=== PATIENT | female | born 1990 ===

== ENCOUNTER 2024-10-13 06:23 | Day surgery (SDC) | payer BC, SELFPAY ==
--- NOTE | 2024-10-12 06:38 | W.CON.GYNONC ---
Chief Complaint
-
endometrial ca
History of Present Illness
33�yo��who�had�menarche�at�age�13,�had�normal�period�though�her�early�20s�but�then�had�heavy�bleeding�and�D&C�showed hyperplasia�in[place].�She�was�given�pills�for�treatment,�only�complied�for�4�5�months�but�never�went�back�for�follow�up.
[place].�had�not�seen�[facility]�for�a�while,�trying�to�get�.�She�works�at�School�with
technology.�Over�last�few�years�she�had�had�intermittent�bleeding�very�heavy�with�clots�with�no�definable�menses.�she�went�to�Dr Giuffreda�for�evaluation.�
MRI�pelvis:�uterus�11.7�cm�x�6.7�x�9�cm,�arcuate�uterus,�no�Fibroids,�Thick�endometrium,�hypo�enhancing,�2.5�cm.�Junctional�zone
is�preserved.�without�significant�effacement�or�restricted�0%�myometrial�invasion.�ROV�is�2.4,�MARIPOSA�2.4�cm.�No�adnexal�masses,�or endometriosis.� Office�Endometrial�biopsy�12/12/23�is�atypical�endometrial�hyperplasia,�EIN.
She�was�taken�to�OR�01/30�for�D&C,�which�showed�grade�1�endometrial�cancer�arising�in�background�of�atypical�hyperplasia' p53�wild�type�pattern MMR�IHC�intact,�no�loss�of�expression,�low�prob�for�MSI�H
PMH�,�pre�diabetes,�gout.�does�not�have�a�dedicated�PCP PSH:�D&C Meds:�Norethidrone All:�NKDA Denies�Tab/etoh,�drugs,�does�use�medical�marijuana FHX:�mother�with�breast�cancer,�father�skin�ca,�multiple�maternal�family�members�with�malignancy
never�had�mammo�or�colonoscopy ����������������������������
patient�has�had�a�PET�CT�scan�which�shows�abnormal�FDG�uptake�in�consistent�with�history�of�endometrial cancer,�there�is�bilateral�right�greater�than�left�inguinal�lymphadenopathy�suspicious�for�benjie�metastatic�disease.�Most�avid�node
measures�4.2�SUV,�there�is�a�focus�of�increased�FDG�uptake�in�the�rectum�without�symptoms�correlate�with�inflammation.,�There is�bilateral�axillary�lymphadenopathy�1.3�cm�right�axilla�with�SUV�max�of�2.7.
CT�chest�abdomen�and�pelvis�was�also�done�at�[facility],�there�was�evidence�of�thickening�of�the�chest,�as�well�as�left�lower�lobe
pleural�based�calcified�nodule�unlikely�to�represent�metastatic�disease�with�calcification.�Again�bilateral�inguinal�adenopathy�was also�noted. Genetic�testing�was�completed,�there�is�no�clinically�significant�patient
However�there�is�a�variant�of�uncertain�significance�present�in�BRIP1.�
Since May She is�undergoing�conservative�management�of�low�grade�endometrial�cancer�with�levonorgestrel�IUD.�
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
She�denies�any�new�medical�problems.�She�still�does�not�have�a�primary�care�physician.
Medical History
Allergies
Allergies reflect when allergies were last updated in [employer].
No Known Allergies Allergy (Verified 10/06/24 15:14)
Physical Exam
Physical Exam
Physical�Exam Pelvic�Examination: External�normal�labia,�urethra,�anus.� Vagina:�Normal�mucosa.� Cervix:�normal�appearance,�no�discharge.�IUD�string�is�present Uterus:�normal�size.� Adnexa:�No�pelvic�mass.� RVE:�no�masses�or�nodularity
General:�Well�developed,�well�nourished�patient.�In�no�acute�distress. Head: Neck:�No�thyromegaly.�No�cervical�lymphadenopathy. Lungs:�Clear�to�auscultation.�Good�air�movement�bilaterally.
Cardiac:�Regular�rate.�Regular�rhythm.�No�murmurs�appreciated. Abdomen:�Abdomen�is�soft.�Non�tender�to�palpation.�Non�distended. Skin:Non�jaundiced.�No�petechia.�No�purpura. facial�skin�with�scar�of�acne�b/l
Impression / Plan
-
This�is�a�33�year�old�G0�woman�with�early�stage�and�low�grade�endometrial�cancer�undergoing�conservative�management�with hormonal�therapy.�She�has�been�on�treatment�approximately�6�months.�
Endometrial�biopsy�in�November�had�shown�papillary�architecture�and�mucinous�differentiation�suggestive�of�residual�hyperplasia but�no�obvious�cancer.
�proceed�with�scheduling�a�D&C�at�the�end�of�this�month,�at�the�time�of�surgery�hysteroscopy�as�well�as�removal�of�IUD will�be�done After�that�the�patient�will�be�brought�to�the�office�to�discuss�long�term�management�plans.
I�had�of�surgery�labs�as�well�as�ultrasound�of�pelvis�and�CT�abdomen�and�pelvis�will�be�obtained.
[2024-10-13] VITALS (8 sets, daily range): BP systolic 118–133; BP diastolic 58–84; BMI 35.8
[2024-10-13 11:55] LABS: Glucose - Point of Care 93 mg/dl (70-99)
[2024-10-13] MEDS: NORMOSOL-R/PLASMALYTE-A 1000 IV (12:49)
[2024-10-13] MEDS: HEPARIN 5000 UNITS SC (12:50)
[2024-10-13] MEDS: CELEBREX 200 MG PO (12:50)
[2024-10-13] MEDS: NEURONTIN 300 MG PO (12:50)
[2024-10-13] MEDS: TYLENOL 1000 MG PO (12:50)
[2024-10-13 12:56] LABS: HCG, Urine Qualitative Screen Negative
--- NOTE | 2024-10-17 07:41 | OR.RPT ---
Operative Report
Operative Report
Date of procedure: October 13 2024
Preoperative diagnosis: Endometrial Cancer, s/p conservative treatment with Progesterone IUD
Postoperative diagnosis: same
Procedure:
#1 exam under anesthesia
#2 Removal of IUD
#3 diagnostic hysteroscopy,
#4 Dilation and Curettage
Surgeon: Alexx Bernabe MD
Assist: Lydia Irwin PA-C
Anesthesia: General , LMA intubation
Complication: None
Estimated blood loss: 50 cc
Specimens: [facility]
Procedure in detail: This patient was taken to the operating room, Upon arrival to the operating room she was placed in supine position, general anesthesia was administered she was intubated without any difficulty. She was placed in lithotomy
position using yellowfin stirrups and prepped on the abdomen perineum and vagina and she was draped. Timeout procedure was carried out, she received Ancef 3 g IV for prophylaxis. Patient has normal bilateral right and left vulva, Vagina was
normal, cervix is unremarkable, IUD string identified adn removed gently without difficulty.
Next Anterior lip was grasped with single-tooth tenaculum. Paracervical block with 5 cc 1% lidocaine was injected at 5:00 and 7:00. Hysteroscope was placed in the uterine cavity and very thick plush endometrium was visualized. Next the
cervical canal was further dilated and sharp curettage of the right uterine cavity was performed and additional polypoid tissue and blood was removed and submitted to pathology.
All instruments were removed I irrigated the vagina with sterile saline. There was no evidence of bleeding I reexamined the rectum and bladder and there was no injuries. Patient was awakened extubated and returned back to recovery room stable
awake and extubated condition. Counts of laps instruments and needle was correct x 2. I was present and scrubbed for entire procedure as dictated above
Disposition: To PACU stable awake and extubated
== END 2024-10-13 17:40 | disposition home or self-care (01) ==
LOC: SDS 06:23
PROVIDERS: ATTENDING PHYSICIAN Obstetrics & Gynecology Gynecologic Oncology
DX: C54.1 Malignant neoplasm of endometrium (principal); Z17.0 Estrogen receptor positive status [ER+]
CPT/HCPCS: 58558; 58301; 88305; 81025; 82962; 88342; 88360

== ENCOUNTER → 2025-02-01 15:01 | Outpatient (REF) | payer BC, SELFPAY | LOC: CLAB 15:01 | PROVIDERS: ATTENDING PHYSICIAN Obstetrics & Gynecology Gynecologic Oncology | DX: C54.1 Malignant neoplasm of endometrium (principal) | CPT/HCPCS: 88305 ==

== ENCOUNTER 2025-04-06 06:03 | Day surgery (SDC) | payer BC, SELFPAY ==
--- NOTE | 2025-04-05 12:16 | W.CON.GYNONC ---
Addendum entered and electronically signed by Alexx Bernabe MD 04/13/25 05:26:
N/A
Addendum entered and electronically signed by Alexx Bernabe MD 04/08/25 09:08:
Date of dictation 04/06/2025
Original Note:
Chief Complaint
-
endometrial ca
History of Present Illness
33 yo who had menarche at age 13, had normal period though her early 20s but then had heavy bleeding and D&C showed
hyperplasia in [place]. She was given pills for treatment, only complied for 4�5 months but never went back for follow up.
relocated to [facility], in 2012. had not seen delimer for a while, trying to get . She works at School with
technology. Over last few years she had had intermittent bleeding very heavy with clots with no definable menses. she went to Dr
Jesse for evaluation.
MRI pelvis: uterus 11.7 cm x 6.7 x 9 cm, arcuate uterus, no Fibroids, Thick endometrium, hypo enhancing, 2.5 cm. Junctional zone
is preserved. without significant effacement or restricted 0% myometrial invasion. ROV is 2.4, MARIPOSA 2.4 cm. No adnexal masses, or
endometriosis.
Office Endometrial biopsy 12/12/23 is atypical endometrial hyperplasia, EIN.
She was taken to OR 01/30 for D&C, which showed grade 1 endometrial cancer arising in background of atypical hyperplasia'
p53 wild type pattern
MMR IHC intact, no loss of expression, low prob for MSI�H
on�February��she�underwent�removal�of�IUD�and�dilation�and�curettage. Unfortunately�the�pathology�still�shows�grade�1�endometrioid�type�endometrial�adenocarcinoma. 11/23/2024
she�is�back�to�office�to�discuss�her�endometrial�ca.�Overall�she�is�tolerating�it�moderately�well�stating�she�is�taking�megace�80�mg BID,�feels�6�lbs�weight�gain,�has�seasonal�affective�disorder�
This�patient�is�taking�Megace�80�mg�twice�daily,�she�feels�significant�weight�gain,�does�not�like�how�she�feels�on�this.�This�strategy was�adopted�after�the�patient�had�6�months�of�exposure�to�levonorgestrel�IUD�which�was�not�effective
�this�patient�returns�back�to�the�office�today She�underwent�ultrasound�of�pelvis�Jaye�1�at�[facility]�outpatient�imaging
Endometriomas�1.8�cm�heterogeneous,�hypervascular�still.�Right�ovary�is�2.7�cm�left�ovary�is�2.5�cm,�uterus�is�overall�9�x�6.2�x�7.7 cm.
Patient�had�biopsy�of�the�endometrium�during�the�last�visit.�Endometrial�biopsy�still�shows�disordered�proliferative�endometrium�but it�was�negative�for�malignancy.
She�is�having�quite�a�difficult�time�tolerating�megestrol�acetate,�wants�to�come�off�of�it�as�soon�as�possible.
PMH , pre diabetes, gout. does not have a dedicated PCP
PSH: D&C
Meds: Norethidrone
All: NKDA
Denies Tab/etoh, drugs, does use medical marijuana
FHX: mother with breast cancer, father skin ca, multiple maternal family members with malignancy
never had mammo or colonoscopy
Medical History
Allergies
Allergies reflect when allergies were last updated in [employer].
No Known Allergies Allergy (Verified 03/31/25 15:00)
Physical Exam
Physical Exam
Physical�Exam Pelvic�Examination: External�normal�labia,�urethra,�anus.� Vagina:�Normal�mucosa.� Cervix:�normal�appearance,�no�discharge.� Uterus:�normal�size.� Adnexa:�No�pelvic�mass.� RVE:�no�masses�or�nodularity
General:�Well�developed,�well�nourished�patient.�In�no�acute�distress. Head: Neck:�No�thyromegaly.�No�cervical�lymphadenopathy. Lungs:�Clear�to�auscultation.�Good�air�movement�bilaterally.
Cardiac:�Regular�rate.�Regular�rhythm.�No�murmurs�appreciated. Abdomen:�Abdomen�is�soft.�Non�tender�to�palpation.�Non�distended. Skin:Non�jaundiced.�No�petechia.�No�purpura. facial�skin�with�scar�of�acne�b/l
Impression / Plan
-
This�is�a�33�year�old�G0�woman�with�early�stage�and�low�grade�endometrial�cancer�undergoing�conservative�management�with hormonal�therapy.�
Unfortunately�she�has�not�had�significant�response�to�levonorgestrel�IUD.�There�is�persistent�grade�1�endometrioid�adenocarcinoma. she�is�now�on�Megace�po She�underwent�ultrasound�of�pelvis�Jaye�1�at�[facility]�outpatient�imaging
Endometriomas�1.8�cm�heterogeneous,�hypervascular�still.�Right�ovary�is�2.7�cm�left�ovary�is�2.5�cm,�uterus�is�overall�9�x�6.2�x�7.7 cm.
Patient�had�biopsy�of�the�endometrium�during�the�last�visit.�Endometrial�biopsy�still�shows�disordered�proliferative�endometrium�but it�was�negative�for�malignancy.
She�is�having�quite�a�difficult�time�tolerating�megestrol�acetate,�wants�to�come�off�of�it�as�soon�as�possible. I�have�tentatively�scheduled�a�D&C�for�her�[place]�18.
[2025-04-06] VITALS (8 sets, daily range): BP systolic 104–141; BP diastolic 60–78; BMI 41.9
[2025-04-06 06:46] LABS: HCG, Urine Qualitative Screen Negative
[2025-04-06] MEDS: CELEBREX 200 MG PO (07:00)
[2025-04-06] MEDS: NEURONTIN 300 MG PO (07:00)
[2025-04-06] MEDS: HEPARIN 5000 UNITS SC (07:00)
[2025-04-06] MEDS: TYLENOL 1000 MG PO (07:00)
[2025-04-06] MEDS: NORMOSOL-R/PLASMALYTE-A 1000 IV (07:01)
--- NOTE | 2025-04-06 08:24 | OR.RPT ---
Operative Report
Operative Report
Date of procedure: 2024
Preoperative diagnosis: Endometrial Cancer, s/p conservative treatment with Megesterol acetate
Postoperative diagnosis: same
Procedure:
#1 exam under anesthesia
#2 diagnostic hysteroscopy,
#3 Dilation and Curettage
Surgeon: Alexx Bernabe MD
Assist: Lydia Irwin PA-C
Anesthesia: General , LMA intubation
Complication: None
Estimated blood loss: 20 cc
Specimens: [facility]
Procedure in detail: This patient was taken to the operating room, Upon arrival to the operating room she was placed in supine position, general anesthesia was administered she was intubated without any difficulty. She was placed in lithotomy
position using yellowfin stirrups and prepped on the abdomen perineum and vagina and she was draped. Timeout procedure was carried out, she received Ancef 3 g IV for prophylaxis. Patient has normal bilateral right and left vulva, Vagina was
normal, cervix is unremarkable.
Next Anterior lip was grasped with single-tooth tenaculum. Paracervical block with 10 cc 1% lidocaine was injected at 5:00 and 7:00. Cervical canal was dilated , uterus sounded to 10 cm, Myosure Hysteroscope was placed in the uterine cavity and
very thick plush endometrium was visualized. Next the cervical canal was further dilated and sharp curettage of the right uterine cavity was performed and some polypoid tissue and blood was removed and submitted to pathology. The amount of
tissue was significantly less than back in September 2024 procedure.
All instruments were removed, I irrigated the vagina with sterile saline. There was no evidence of bleeding I reexamined the rectum and bladder and there was no injuries. Patient was awakened extubated and returned back to recovery room stable
awake and extubated condition.
Counts of laps instruments and needle was correct x 2. I was present and scrubbed for entire procedure as dictated above.
Disposition: To PACU stable awake and extubated
== END 2025-04-06 09:40 | disposition home or self-care (01) ==
LOC: SDS 06:03
PROVIDERS: ATTENDING PHYSICIAN Obstetrics & Gynecology Gynecologic Oncology
DX: N85.02 Endometrial intraepithelial neoplasia [EIN] (principal)
CPT/HCPCS: 58558; 81025; 88305